=== PATIENT | male | born 2000 | race Caucasian/White ===

== ENCOUNTER 2019-11-12 21:10 | Emergency (ER) | payer OTHER ==
[~2019-11-12] VITALS: Ht 182.9 cm; Wt 86.2 kg
[2019-11-12] MEDS ORDERED: NORCO 5-325 TA1 EAC1 PO (22:16)
[2019-11-12 22:46] VITALS: BP 126/68
== END 2019-11-12 22:55 | disposition home or self-care (01) ==
LOC: ER 21:10
DX: S82.432A Displaced oblique fracture of shaft of left fibula, initial encounter for closed fracture (principal); Z88.1 Allergy status to other antibiotic agents; X50.1XXA Overexertion from prolonged static or awkward postures, initial encounter; Y93.21 Activity, ice skating; Y92.89 Other specified places as the place of occurrence of the external cause; Y99.8 Other external cause status